=== PATIENT | male | born 1990 | race Caucasian/White ===

== ENCOUNTER 2021-08-19 22:17 | Observation (INO) | payer SELFPAY ==
[~2021-08-19] VITALS: Wt 62.2 kg
[2021-08-19 22:43] LABS: ALANINE AMINOTRANSFERASE 10 U/L (0-55); ALKALINE PHOSPHATASE 65 U/L (40-150); ANION GAP 10 mmol/L (7-16); AST,SGOT 24 U/L (5-34); BILIRUBIN,TOTAL 0.6 mg/dL (0.2-1.2); BLOOD UREA NITROGEN 12 mg/dL (9-21); CALCIUM 8.4 mg/dL (8.4-10.2); CARBON DIOXIDE 23 mmol/L (22-29); CHLORIDE 109 mmol/L (98-107); CREATININE, serum 0.84 mg/dL (0.72-1.25); GLUCOSE 107 mg/dL (70-99); POTASSIUM 4.1 mmol/L (3.5-4.5); SODIUM 142 mmol/L (136-145)
[2021-08-19 22:48] LABS: ALCOHOL(ethanol),MEDICAL < 10 mg/dL (0-10)
[2021-08-19 23:15] LABS: BASO % 0.6 % (0.0-2.0); EOS # 0.1 K/mm3 (0.0-0.7); EOS % 1.7 % (0.0-4.0); GRAN % 69.5 % (42.2-75.2); HEMATOCRIT 35.3 % (42.0-52.0); HEMOGLOBIN 11.7 g/dl (13.5-18.0); LYMPH # 1.5 K/mm3 (1.2-3.4); LYMPH % 20.5 % (20.0-51.0); MEAN CELL VOLUME 89 fl (80.0-100.0); MEAN CORPUSCULAR HEMOGLOBIN 29 pg (27-31); MEAN CORPUSCULAR HGB CONC 33 g/dl (33.0-37.0); MEAN PLATELET VOLUME 10.7 fl (7.4-10.4); MONO # 0.5 K/mm3 (0.1-0.6); MONO % 7.4 % (1.7-9.3); PLATELET COUNT 149 K/mm3 (130-400); RED BLOOD COUNT 3.99 M/mm3 (4.20-5.60); REDCELL DISTRIBUTION WIDTH-CV 12.7 % (11.5-14.5)
--- NOTE | 2021-08-20 01:00 | NUR ---
PT ADMITTED TO ROOM 330 PER CART. VERY DROWSY UNTIL TRANSFERRED INTO BED. USING PROFANITY. ATTEMPTED TO GET UA. PT REFUSED. PT DOESNT KNOW WHERE HE IS AT AT PRESENT TIME. RT ORBIT SWOLLEN AND BRUISED. SMALL LACERATIION TO RT BROW WITH SUTURES NOTED. C/O LLE HURTS. NO VISIBLE INJURY. PT NONCOOPERATIVE BUT RETING IN BED.
--- NOTE | 2021-08-20 01:15 | NUR ---
PT UNABLE TO ANSWER ADMISSION QUESTIONS FROM ASSESSMENT INTAKE.
[2021-08-20 01:34] VITALS: BP 107/59; PULSE 78; TEMP 98.6
--- NOTE | 2021-08-20 01:37 | NUR ---
UNABLE TO OBTAIN UA AT THIS TIME. PT SLEEPING SOUNDLY BUT WAKES TO SPEECH THEN RETURNS TO SLEEP. PT HAS X3 CELLPHONES AT BEDSIDE. CALL LIGHT IN REACH. BED ALARM SET.
--- NOTE | 2021-08-20 03:10 | NUR ---
PT WAKES TO SPEECH BUT KEEPS EYES CLOSED. PT KNOWS HE IS IN THE HOSPITAL AND WHO THE PRESIDENT IS. MIDDLE NAME GENE. NO CHANGE TO RT EYE SWELLING. PT DENIES NEED TO VOID YET.
[2021-08-20 04:12] VITALS: BP 117/55; BP 139/75; PULSE 76; PULSE 80; TEMP 98.4; TEMP 98.7
[2021-08-20 05:17] LABS: COLLECTION METHOD CLEAN CATCH
--- NOTE | 2021-08-20 05:21 | NUR ---
OBTAINED UA AND SEBT TO LAB. PT MANAGED URIANAL ON SIDE OF BED PER SELF. SEE MAR FOR MS GIVEN FOR BILAT ANKLE PAIN LEVEL 10. MINOR SWELLING OF LT ANKLE. PPP. NEUROCHECKS WNLS.
[2021-08-20 05:24] LABS: MUCOUS Present (NOT PRESENT); PH 5 (5-8); SQUAMOUS EPITHELIAL None Seen /hpf (0-10); URINE APPEARANCE Clear (CLEAR/HAZY); URINE BACTERIA None Seen /hpf (NONE SEEN); URINE BILIRUBIN Negative (NEGATIVE); URINE BLOOD Negative (NEGATIVE); URINE COLOR Yellow (YELLOW); URINE GLUCOSE Negative (NEGATIVE); URINE KETONE 1+ (NEGATIVE); URINE LEUKOCYTE ESTERASE Negative (NEGATIVE); URINE NITRATE Negative (NEGATIVE); URINE PROTEIN(semi-quant) Negative (NEGATIVE); URINE UROBILINOGEN Negative (NEGATIVE)
[2021-08-20 05:34] LABS: TRICYCLIC ANTIDEPRESS URINE NEGATIVE
[2021-08-20 08:00] VITALS: BP 124/62; PULSE 96; TEMP 100
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
[2021-08-20] MEDS ORDERED: AMOXICILLIN 8751 TAB PO (09:58)
--- NOTE | 2021-08-20 11:55 | NUR ---
PATIENT MORE AWAKE NOW AND C/O ACHES & PAINS ALL OVER. GAVE PRN MORPHINE IV PER ORDERS. PATIENT RESTING UP IN BED
[2021-08-20 11:59] VITALS: BP 116/78; PULSE 86; TEMP 98.6
--- NOTE | 2021-08-20 14:55 | NUR ---
NURSING ENTERED ROOM TO FIT PATIENT FOR LLE CAM BOOT. PATIENT WAS SOUND ASLEEP AND DID NOT WAKE TO NURSING MAKING NOISE IN THE ROOM. PATIENT'S RIDE IS COMING FROM [place] AND NOT HERE YET. CAM BOOT SET ON COUNTER. PATIENT SLEEPING WITH CALL LIGHT IN REACH.
[2021-08-20 16:00] VITALS: BP 116/57; PULSE 98; TEMP 98.9
--- NOTE | 2021-08-20 16:15 | NUR ---
PATIENT HAS SLEPT MOST OF THE AFTERNOON AWAY. NURSING WOKE HIM UP TO FIT HIS LLE CAM BOOT, NOW INPLACE. PATIENT ATTEMPTING TO CALL HIS RIDE WHO SHOULD HAVE BEEN HERE AN HOUR AGO. PATIENT INQUIRING ABOUT PAIN MEDS ON DISCHARGE, NONE ORDERED. NOTIFIED PROVIDER, AWAITING RETURN CALL.
--- NOTE | 2021-08-20 17:26 | NUR ---
PATIENT'S RIDE STILL HAS NOT SHOWN UP TO GET HIM. PATIENT ALSO DOESN'T HAVE CLOTHES TO WEAR HIS WERE CUTT OFF IN THE ER. BOX SPRING FRAME BUILDER NOTIFIED AND NURSING STAFF WENT TO LOOK IN OUR DONATION BOX.
--- NOTE | 2021-08-20 18:00 | NUR ---
PATIENT CALLED OUT REPORTING HIS RIDE IS HERE. PATIENT'S IV DC'D AND SITE COVERED WITH GAUZE & TAPE. PATIENT'S CLOTHES WERE CUTT OFF IN ER AND WAS GIVEN CLOTHES FROM THE HOSPITAL TO WEAR. GAVE DISCHARGE INSTRUCTIONS, DISCUSSED F/U IN [place] WHERE HE LIVES AND ANSWERED QUESTIONS. PATIENT HAS PERSONAL BELONGINGS AND IS ESCORTED OUT VIA . CAM BOOT TO [facility].
--- NOTE | 2021-08-20 18:35 | NUR ---
RITUAL CIRCUMCISER CALLED NURSING REPORTING PATIENT'S RIDE STILL HAS NOT SHOWN UP. PATIENT IS A SMOKER AND WANTS TO GO OUT SIDE IN THE RAIN TO SMOKE. PATIENT REFUSING TO GO BACK TO UNIT TILL HIS RIDE SHOWS UP. CASTING INSPECTOR NOTIFIED. PATIENT OKAY TO BE DISCHARGED FROM FACILITY AND LEFT IN THE ER ENTERENCE TO WAIT FOR HIS RIDE.
== END 2021-08-20 18:00 | disposition home or self-care (01) ==
LOC: COL.ER 22:17 → SURG 08-20 00:02
PROVIDERS: Emergency Medicine; ADMIT Surgery
DX: S82.402A Unspecified fracture of shaft of left fibula, initial encounter for closed fracture (principal); S09.90XA Unspecified injury of head, initial encounter; F17.200 Nicotine dependence, unspecified, uncomplicated; W22.8XXA Striking against or struck by other objects, initial encounter
CPT/HCPCS: G0378; J2270; J2405; J3010; J7030; L4386